=== PATIENT | male | born 1985 | race African-American/Black ===

== ENCOUNTER 2017-11-28 15:50 | Emergency (ER) | payer SELFPAY ==
[~2017-11-28] VITALS: Ht 182.9 cm; Wt 90.0 kg
[~2017-11-28 15:50] MED LIST: BACT800T5 PO; BECL80AE3 INH; DUONI NEB; LORA10TA PO; NAPR500 PO
[2017-11-28 16:05] VITALS: BP 167/96; PULSE 83; RESP 16; TEMP 98.4; O2SAT 98
[2017-11-28] MEDS ORDERED: ACETAMINOPHEN/HYDROcodone 325 MG/5 MG TAB PO ONE (16:30)
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
[2017-11-28] MEDS ORDERED: LIDOCAINE HCL 1% 20 ML VIAL ONE (16:58)
[2017-11-28] MEDS ORDERED: LIDOCAINE HCL 1% 20 ML VIAL INFIL ONE (17:00)
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
[2017-11-28 19:00] VITALS: BP 171/101; PULSE 90; RESP 16; O2SAT 99
== END 2017-11-28 19:21 | disposition home or self-care (01) ==
LOC: NEPC 15:50
DX: S01.01XA Laceration without foreign body of scalp, initial encounter (principal); J45.909 Unspecified asthma, uncomplicated; Y04.8XXA Assault by other bodily force, initial encounter
CPT/HCPCS: 12002; 70450; 72125

== ENCOUNTER 2017-12-04 11:53 | Emergency (ER) | payer SELFPAY ==
[2017-12-04 11:55] VITALS: BP 151/81; PULSE 99; RESP 14; TEMP 98.2; O2SAT 99
[2017-12-04] MEDS ORDERED: IBUP1TAB7 PO (12:49)
[2017-12-04] MEDS ORDERED: BACT800T5 PO (12:49)
--- NOTE | 2017-12-04 12:50 | PD ---
HPI Chief Complaint: Wound/Suture/Staple Re-Check Time Seen by Provider: 12:43 Travel History International Travel<30 days: No Contact w/Intl Traveler<30days: No Traveled to known affect area: No History of Present Illness HPI 32-year-old male presents to the emergency department for staple removal to the posterior scalp and left scalp. They've also been in place for 6 days. He reports drainage from the one staple to the left scalp. This area is tender. Denies fever, vomiting. Has been using hydrogen peroxide for wound care. No previous antibiotic therapy. Symptoms are mild in severity. No known aggravating or relieving factors. No primary care provider. No known allergies. History of asthma. Has no other medical complaints. No other modifying factors or associated signs and symptoms. PFSH Past Medical History Asthma: Yes Respiratory: Yes (ASTHMA) Social History Alcohol Use: Yes Tobacco Use: No Substance Use: No Allergies-Medications (Allergen,Severity, Reaction): Coded Allergies: No Known Allergies (Unverified , 07/21/15) Reported Meds & Prescriptions Reported Meds & Active Scripts Active Ibuprofen 800 Mg Tab 800 Mg PO Q6HR PRN Bactrim DS (Sulfamethoxazole-Trimethoprim) 800-160 Mg Tab 1 Tab PO BID 10 Days Qvar 80 mcg (Beclomethasone Dipropionate) 80 Mcg Aer 1 Puff INH BID Claritin 10 Mg Tab (Loratadine) 10 Mg Tab 10 Mg PO DAILY Naprosyn (Naproxen) 500 Mg Tab 500 Mg PO BID PRN Bactrim DS (Sulfamethoxazole-Trimethoprim DS) 1 Tab Tab 1 Tab PO Q12 10 Days Reported Resp: Albuterol/Ipratropium 2.5 Mg/0.5 Mg (Albuterol/Ipratropium) 1 Amp Nebu 1 Ampule NEB Q4HR NEB PRN Review of Systems Except as stated in HPI: all other systems reviewed are Neg Physical Exam Narrative GENERAL: Well-nourished, well-developed black male patient, in no acute distress SKIN: Warm and dry. Posterior scalp with wound that is well approximated with rocio intact; without erythema, edema, or drainage. Left scalp with one single staple intact and the area is mildly edematous with purulent drainage and tenderness on palpation. HEAD: Atraumatic. Normocephalic. EYES: Pupils equal and round. No scleral icterus. No injection or drainage. ENT: Mucosa pink and moist. Airway patent. NECK: Trachea midline. CARDIOVASCULAR: Regular rate. RESPIRATORY: No accessory muscle use. GASTROINTESTINAL: Rounded. MUSCULOSKELETAL: No obvious deformities. No clubbing. No cyanosis. No edema. NEUROLOGICAL: Awake and alert. Oriented 3. No obvious cranial nerve deficits. Motor grossly within normal limits. Normal speech. PSYCHIATRIC: Appropriate mood and affect; insight and judgment normal. Data Data Last Documented VS Vital Signs Date Time Temp Pulse Resp B/P (MAP) Pulse Ox O2 Delivery O2 Flow Rate FiO2 12/04/17 11:55 98.2 99 14 151/81 (104) 99 Orders Orders Wound Culture And Gram Stain (12/04/17 12:50) Ed Discharge Order (12/04/17 12:50) [facility] Medical Decision Making Medical Screen Exam Complete: Yes Emergency Medical Condition: Yes Medical Record Reviewed: Yes Differential Diagnosis Staple removal, wound infection, wound recheck Narrative Course 32-year-old male presents for staple removal. Rocio were removed from the posterior wound of the scalp. The left scalp has a single staple and the wound appears to be infected. Staple left in place. Wound culture ordered and pending. Bactrim and ibuprofen prescribed for home. Instructed patient to return to the emergency department in 5-7 days for staple removal and wound recheck, or earlier if worsening. Instructed patient to follow up with primary care provider. Patient verbalizes understanding and agreement with treatment plan. Patient is medically cleared and stable for discharge. Discussed reasons to return to the emergency department. Patient agrees with treatment plan. The patients vital signs are stable and the patient is stable for outpatient follow-up and treatment. Patient discharged home, stable and in no acute distress. Diagnosis Primary Impression: Encounter for staple removal Additional Impression: Wound infection Referrals: [facility] Primary Care Physician Patient Instructions: General Instructions, Staple Care (ED), Wound Infection ( ED) Additional Instructions: Ibuprofen or Tylenol as directed and as needed for pain Antibiotics as prescribed in complete full course Topical antibiotic ointment to affected area as directed and as needed for wound care Keep area clean and dry Return to the emergency department in approximately 5-7 days for staple removal and wound recheck Follow-up with primary care provider Return to the emergency department immediately with worsening of symptoms Med/Other Pt SpecificInfo: Prescription(s) given Scripts Ibuprofen (Ibuprofen) 800 Mg Tab 800 MG PO Q6HR Y for PAIN, #20 TAB 0 Refills Prov: Sally Denney 12/04/17 Sulfamethoxazole-Trimethoprim (Bactrim DS) 800-160 Mg Tab 1 TAB PO BID for Infection for 10 Days, #20 TAB 0 Refills Prov: Sally Denney 12/04/17 Disposition: 01 DISCHARGE HOME Condition: Stable Sally Denney Dec 04, 2017 12:50
== END 2017-12-04 13:18 | disposition home or self-care (01) ==
LOC: NEPK 11:53
DX: T81.4XXA Infection following a procedure, initial encounter (principal); B95.0 Streptococcus, group A, as the cause of diseases classified elsewhere; J45.909 Unspecified asthma, uncomplicated; Z48.02 Encounter for removal of sutures; Y84.9 Medical procedure, unspecified as the cause of abnormal reaction of the patient, or of later complication, without mention of misadventure at the time of the procedure
CPT/HCPCS: 86403; 87070; 99281; 99283